=== PATIENT | female | born 1995 | race American Indian/Alaskan Native ===

== ENCOUNTER 2017-09-12 18:44 | Emergency (ER) | payer MEDICAID ==
--- NOTE | 2017-09-12 19:20 | EDM.PDOC ---
ED HPI GENERAL MEDICAL PROBLEM - General Chief Complaint: INVENTORY COORDINATOR Problem Stated Complaint: BLEEDING PG 6 WKS Time Seen by Provider: 09/12/17 19:00 Source of Information: Reports: Patient History Limitations: Reports: No Limitations - History of Present Illness INITIAL COMMENTS - FREE TEXT/NARRATIVE: 21-year-old female presents for evaluation treatment of vaginal bleeding and lower abdominal and pelvic cramping. Patient reports last menstrual period was July [address] her about 9 weeks and 3 days . She has not yet seen OB for this . Reports around 1400 today she started experiencing some bright red vaginal bleeding and passing some clots. She is also experiencing pain and cramping to the lower abdomen. No fevers, chills, nausea, vomiting, back pain or any dysuria. Patient does not know her blood type. Patient is a . This was not a planned . She is currently taking a vitamin. Denies any illicit drug use, alcohol use or any tobacco use. Lower Pelvic Pain Score (Numeric/FACES): 2 - Related Data Allergies Allergy/AdvReac Type Severity Reaction Status Date / Time No Known Allergies Allergy Verified 09/12/17 18:54 Home Meds: Home Meds Calcium Carbonate/Vitamin D2 [Oyster Shell Calcium-Vit D Tab] 1 tab PO BID 09/12 [History] Pnv with Ca,No.72/Iron/Fa [ Plus Tablet] 1 tab PO DAILY 09/12/17 [ History] Past Medical History - Past Health History Medical/Surgical History: Denies Medical/Surgical History Social & Family History - Tobacco Use Smoking Status *Q: Never Smoker - Caffeine Use Caffeine Use: Reports: Soda - Recreational Drug Use Recreational Drug Use: No ED ROS GENERAL - Review of Systems Review Of Systems: See Below Constitutional: Denies: Fever, Chills GI/Abdominal: Reports: Abdominal Pain (lower abdomen and pelvis cramping). Denies: Nausea, Vomiting : Reports: Pain (pelvic cramping). Denies: Dysuria Musculoskeletal: Denies: Back Pain ED EXAM - Physical Exam Exam: See Below Exam Limited By: No Limitations General Appearance: Alert, WD/WN, No Apparent Distress Respiratory/Chest: No Respiratory Distress, Lungs Clear, Normal Breath Sounds Cardiovascular: Normal Peripheral Pulses, Regular Rate, Rhythm GI/Abdominal Exam: Normal Bowel Sounds, Soft, Non-Tender (Female) Exam: Vaginal Bleeding. No: Cervical Dilatation, Tissue Present in Cervix/Vagina Heart Tones: Present (on transvag u/s) Neurological: Alert, Oriented, Normal Cognition Psychiatric: Normal Affect, Normal Mood Skin Exam: Warm, Dry, Normal Color Course - Vital Signs Last Recorded V/S: Last Vital Signs Temp 36.2 C 09/12/17 18:59 Pulse 75 09/12/17 18:59 Resp 20 09/12/17 18:59 BP 133/78 09/12/17 18:59 Pulse Ox 100 09/12/17 18:59 - Orders/Labs/Meds Orders: Active Orders 24 hr Category Date Time Status Pelvic Exam, Set Up [RC] ASDIRECTED Care 09/12/17 19:16 Active UA W/MICROSCOPIC [URIN] Stat Lab 09/12/17 19:25 Ordered Labs: Laboratory Tests 09/12/17 09/12/17 09/12/17 Range/Units 19:25 19:28 19:28 WBC 10.98 H (3.98-10.04) K/mm3 RBC 4.74 (3.98-5.22) M/mm3 Hgb 12.0 (11.2-15.7) gm/L Hct 37.3 (34.1-44.9) % MCV 78.7 L (79.4-94.8) fl MCH 25.3 L (25.6-32.2) pg MCHC 32.2 (32.2-35.5) g/dl RDW Std Deviation 39.3 (36.4-46.3) fL Plt Count 245 (182-369) K/mm3 MPV 10.4 (9.4-12.3) fl Neut % (Auto) 59.0 (34.0-71.1) % Lymph % (Auto) 32.6 (19.3-51.7) % [place] % (Auto) 6.2 (4.7-12.5) % Eos % (Auto) 1.7 (0.7-5.8) Baso % (Auto) 0.3 (0.1-1.2) % Neut # (Auto) 6.48 H (1.56-6.13) K/mm3 Lymph # (Auto) 3.58 (1.18-3.74) K/mm3 [place] # (Auto) 0.68 H (0.24-0.36) K/mm3 Eos # (Auto) 0.19 (0.04-0.36) K/mm3 Baso # (Auto) 0.03 (0.01-0.08) K/mm3 HCG, Quant 7342.0 mIU/mL Urine Color Light yellow (Yellow) Urine Appearance Slt cloudy H (Clear) Urine pH 6.5 (5.0-8.0) Ur Specific [place] > or = 1.030 (1.005-1.030) Urine Protein Negative (Negative) Urine Glucose (UA) Negative (Negative) Urine Ketones Negative (Negative) Urine Occult Blood 3+ H (Negative) Urine Nitrite Negative (Negative) Urine Bilirubin Negative (Negative) Urine Urobilinogen 0.2 (0.2-1.0) Ur Leukocyte Esterase Negative (Negative) Urine RBC 50-75 H (0-5) /hpf Urine WBC 0-5 (0-5) /hpf Ur Epithelial Cells 0-5 (0-5) /hpf Urine Bacteria Occasional (FEW) /hpf Urine Mucus Not seen (FEW) /hpf Blood Type 09/12/17 Range/Units 19:28 WBC (3.98-10.04) K/mm3 RBC (3.98-5.22) M/mm3 Hgb (11.2-15.7) gm/L Hct (34.1-44.9) % MCV (79.4-94.8) fl MCH (25.6-32.2) pg MCHC (32.2-35.5) g/dl RDW Std Deviation (36.4-46.3) fL Plt Count (182-369) K/mm3 MPV (9.4-12.3) fl Neut % (Auto) (34.0-71.1) % Lymph % (Auto) (19.3-51.7) % [place] % (Auto) (4.7-12.5) % Eos % (Auto) (0.7-5.8) Baso % (Auto) (0.1-1.2) % Neut # (Auto) (1.56-6.13) K/mm3 Lymph # (Auto) (1.18-3.74) K/mm3 [place] # (Auto) (0.24-0.36) K/mm3 Eos # (Auto) (0.04-0.36) K/mm3 Baso # (Auto) (0.01-0.08) K/mm3 HCG, Quant mIU/mL Urine Color (Yellow) Urine Appearance (Clear) Urine pH (5.0-8.0) Ur Specific [place] (1.005-1.030) Urine Protein (Negative) Urine Glucose (UA) (Negative) Urine Ketones (Negative) Urine Occult Blood (Negative) Urine Nitrite (Negative) Urine Bilirubin (Negative) Urine Urobilinogen (0.2-1.0) Ur Leukocyte Esterase (Negative) Urine RBC (0-5) /hpf Urine WBC (0-5) /hpf Ur Epithelial Cells (0-5) /hpf Urine Bacteria (FEW) /hpf Urine Mucus (FEW) /hpf Blood Type O POSITIVE - Radiology Interpretation Free Text/Narrative:: First trimester obstetrical ultrasound: Multiple real-time images were obtained transvaginally. Comparison: No previous study for current . And dates: LMP: LMP given as 07/08/17, ISH 04/14/18, gestational age 9 weeks 3 days Current ultrasound: ISH 05/08/18, gestational age 6 weeks 0 days Single intrauterine gestation is seen. Yolk sac and small embryo are identified. No subchorionic hemorrhage is seen. Maternal ovaries are seen which appear within normal limits. Measurements: [place]-rump length: 4.38 cm - 6 weeks 1 day Mean sac diameter: 1.05 cm - 5 weeks 5 days Heart rate: 99 BPM Impression: 1. Single intrauterine gestation. Dates as noted above. 2. Heart rate is low which may relate to early age of , however recommend follow-up study in 11 days if patient does not miscarry. 3. No complicating process is otherwise seen by ultrasound exam. - Re-Assessments/Exams Free Text/Narrative Re-Assessment/Exam: 09/12/17 21:09 Patient was offered pain medication upon arrival to the ER but declined. Patient apparently 9 weeks and 3 days based on last menstrual period but measuring about 6 weeks on ultrasound. Discussed possibility of having dates wrong but she is adamant she did not have a menstrual cycle in August. This could be implantation bleeding she is experiencing tonight. I reviewed the labs and imaging with the patient. Plan will be to have her obtain an hCG in about 48-72 hours and follow up within OB in 1 week. Outpatient order was placed after have an hCG drawn either on Saturday or Saturday. Blood type is O+, no need for rhogram today. Discharge instructions as documented. Departure - Departure Time of Disposition: 21:09 Disposition: Home, Self-Care 01 Condition: Fair Clinical Impression: Threatened , Vaginal bleeding during - Discharge Information Instructions: Vaginal Bleeding During , First Trimester Referrals: Lorena Ortega MD [Physician] - Forms: ED Department Discharge Additional Instructions: Continue with your vitamin. Continue to avoid, drugs, alcohol and tobacco products during . drink plenty of water.drink half your body weight in ounces every day. Nothing vaginal until cleared by OB. No intercourse or tampon use etc. Rest. May take [id number] Tylenol for pain. No aspirin, Aleve, ibuprofen, etc. during . Have your hCG drawn 2-3 days. your hCG tonight was 7342, this should double every 48-72 hours in a healthy . Follow-up with OB next week for a recheck. Recommend follow-up ultrasound in about 11 days. If your would prefer a female, Dr. Ruiz and Dr. Ortega at [facility] are the INVENTORY COORDINATOR providers there. Call [phone] to schedule appointment there. Please return to the ER for symptoms change or worsen. - My Orders Last 24 Hours: My Active Orders 09/12/17 19:16 Pelvic Exam, Set Up [RC] ASDIRECTED 09/12/17 19:25 UA W/MICROSCOPIC [URIN] Stat - Assessment/Plan Last 24 Hours: My Active Orders 09/12/17 19:16 Pelvic Exam, Set Up [RC] ASDIRECTED 09/12/17 19:25 UA W/MICROSCOPIC [URIN] Stat
--- NOTE | 2017-09-12 20:53 | US ---
First trimester obstetrical ultrasound: Multiple real-time images were obtained transvaginally. Comparison: No previous study for current . And dates: LMP: LMP given as 07/08/17, ISH 04/14/18, gestational age 9 weeks 3 days Current ultrasound: ISH 05/08/18, gestational age 6 weeks 0 days Single intrauterine gestation is seen. Yolk sac and small embryo are identified. No subchorionic hemorrhage is seen. Maternal ovaries are seen which appear within normal limits. Measurements: [place]-rump length: 4.38 cm - 6 weeks 1 day Mean sac diameter: 1.05 cm - 5 weeks 5 days Heart rate: 99 BPM Impression: 1. Single intrauterine gestation. Dates as noted above. 2. Heart rate is low which may relate to early age of , however recommend follow-up study in 11 days if patient does not miscarry. 3. No complicating process is otherwise seen by ultrasound exam. Diagnostic code #3
== END 2017-09-12 21:27 | disposition home or self-care (01) ==
LOC: JD.ED 18:44
DX: O20.0 Threatened abortion (principal); Z3A.09 9 weeks gestation of pregnancy
CPT/HCPCS: 36415; 76817; 76817-26; 81001; 84702; 85025; 86900; 86901; 99283; 99284-25

== ENCOUNTER 2020-11-13 17:28 | Emergency (ER) | payer MEDICAID ==
[2020-11-13] MEDS ORDERED: Sodium Chloride 0.9% 1,000 ML IV ONE (17:33)
[2020-11-13] MEDS ORDERED: Sodium Chloride 0.9% 10 ML Syringe FLUSH PRN (17:33)
[2020-11-13] MEDS ORDERED: LORazepam 2 MG/ML SDV IVPUSH ONE ×2 (17:33→18:44)
--- NOTE | 2020-11-13 18:05 | EDM.PDOC ---
ED HPI GENERAL MEDICAL PROBLEM - General Chief Complaint: Drug or Alcohol Abuse Stated Complaint: [facility] Time Seen by Provider: 11/13/20 17:32 Source of Information: Reports: Patient, RN Notes Reviewed History Limitations: Reports: No Limitations - History of Present Illness INITIAL COMMENTS - FREE TEXT/NARRATIVE: Patient is a 24-year-old female who presents to the ER by [facility] for the evaluation of her methamphetamine and fentanyl use. Patient states that she does use meth quite frequently, prior to 1-1/2 weeks ago, she was only smoking and snorting meth. About a week and a half ago however she states she started injecting meth into her veins. She notes that her father recently and this has been a major stressor for her. She is also taking fentanyl with the methamphetamines. States that her last use was exactly 2 hours prior to coming to the ER. She notes that she did use meth and fentanyl 3 times today. She states that she usually does not use them together, she thinks that this is what is causing her so much agitation. She is not having any fevers or chills, cough/shortness of breath, nausea/vomiting/diarrhea, she is not having any chest pain, she is experiencing some abdominal pain but states she has not really been eating much or taking care of herself for the last few days. Notes that she has had a weight loss due to increased meth use. - Related Data Allergies Allergy/AdvReac Type Severity Reaction Status Date / Time No Known Allergies Allergy Verified 11/13/20 17:32 Home Meds: Home Meds . [No Known Home Meds] 11/13/20 [History] Past Medical History - Past Health History Medical/Surgical History: Denies Medical/Surgical History Social & Family History - Tobacco Use Tobacco Use Status *Q: Never Tobacco User - Caffeine Use Caffeine Use: Reports: Soda - Recreational Drug Use Recreational Drug Use: Yes Drug Use in Last 12 Months: Yes Recreational Drug Type: Reports: Fentanyl, Methamphetamine ED ROS GENERAL - Review of Systems Review Of Systems: Comprehensive ROS is negative, except as noted in HPI. ED EXAM, GENERAL - Physical Exam Exam: See Below Exam Limited By: No Limitations General Appearance: Alert, WD/WN, No Apparent Distress, Anxious (generalized; pt is visibly high on methamphetamine and is tweaking.) Respiratory/Chest: No Respiratory Distress, Lungs Clear, Normal Breath Sounds, No Accessory Muscle Use, Chest Non-Tender Cardiovascular: Normal Peripheral Pulses, Regular Rate, Rhythm, No Edema, No Murmur Peripheral Pulses: 1+: Radial (L), Radial (R) GI/Abdominal: Normal Bowel Sounds, Soft, Non-Tender, No Distention, No Mass Extremities: Normal Inspection, Normal Capillary Refill Neurological: Alert, Oriented, Normal Cognition, No Motor/Sensory Deficits Psychiatric: Anxious (pt is very fidgety and anxious but does answer questions appropriately) Skin Exam: Warm, Dry, Intact, Normal Color, No Rash Course - Vital Signs Last Recorded V/S: Last Vital Signs Temp 97.4 F 11/13/20 17:32 Pulse 107 H 11/13/20 17:32 Resp 20 11/13/20 17:32 BP 136/69 11/13/20 17:32 Pulse Ox 100 11/13/20 17:32 - Orders/Labs/Meds Orders: Active Orders 24 hr Category Date Time Status Peripheral IV Care [RC] . DIRECTED Care 11/13/20 17:33 Ordered Sodium Chloride 0.9% [Saline Flush] Med 11/13/20 17:33 Ordered 10 ml FLUSH ASDIRECTED PRN Peripheral IV Insertion Adult [OM.PC] Routine Oth 11/13/20 17:33 Ordered Medication Orders Sodium Chloride (Sodium Chloride 0.9% 10 Ml Syringe) 10 ml FLUSH ASDIRECTED PRN PRN Reason: Keep Vein Open Last Admin: 11/13/20 17:41 Dose: 10 ml Documented by: EMMA Labs: Laboratory Tests 11/13/20 11/13/20 Range/Units 17:30 17:30 WBC 9.21 (3.98-10.04) K/mm3 RBC 5.44 H (3.98-5.22) M/mm3 Hgb 10.6 L (11.2-15.7) gm/dl Hct 35.0 (34.1-44.9) % MCV 64.3 L D (79.4-94.8) fl MCH 19.5 L (25.6-32.2) pg MCHC 30.3 L (32.2-35.5) g/dl RDW Std Deviation 39.8 (36.4-46.3) fL Plt Count 321 D (182-369) K/mm3 MPV 10.4 (9.4-12.3) fl Neut % (Auto) 62.1 (34.0-71.1) % Lymph % (Auto) 29.9 (19.3-51.7) % [place] % (Auto) 7.3 (4.7-12.5) % Eos % (Auto) 0.3 L (0.7-5.8) Baso % (Auto) 0.2 (0.1-1.2) % Neut # (Auto) 5.72 (1.56-6.13) K/mm3 Lymph # (Auto) 2.75 (1.18-3.74) K/mm3 [place] # (Auto) 0.67 H (0.24-0.36) K/mm3 Eos # (Auto) 0.03 L (0.04-0.36) K/mm3 Baso # (Auto) 0.02 (0.01-0.08) K/mm3 Manual Slide Review Abnormal smear Sodium 139 (136-145) mEq/L Potassium 3.3 L (3.5-5.1) mEq/L Chloride 101 (98-107) mEq/L Carbon Dioxide 20 L (21-32) mEq/L Anion Gap 21.3 H (5-15) BUN 8 (7-18) mg/dL Creatinine 1.2 H (0.55-1.02) mg/dL Est Cr Clr Drug Dosing 82.19 mL/min Estimated GFR (MDRD) 56 (>60) mL/min BUN/Creatinine Ratio 6.7 L (14-18) Glucose 97 (70-99) mg/dL Calcium 9.6 (8.5-10.1) mg/dL Total Bilirubin 0.6 (0.2-1.0) mg/dL AST 37 (15-37) U/L ALT 61 H (14-59) U/L Alkaline Phosphatase 129 H (46-116) U/L Total Protein 9.0 H (6.4-8.2) g/dl Albumin 4.3 (3.4-5.0) g/dl Globulin 4.7 gm/dL Albumin/Globulin Ratio 0.9 L (1-2) Meds: Medications Generic Name Dose Route Start Last Admin Trade Name Freq PRN Reason Stop Dose Admin Sodium Chloride 10 ml 11/13/20 17:33 11/13/20 17:41 Sodium Chloride 0.9% 10 Ml Syringe FLUSH 10 ml ASDIRECTED PRN Administration Keep Vein Open Discontinued Medications Generic Name Dose Route Start Last Admin Trade Name Danis PRN Reason Stop Dose Admin Sodium Chloride 1,000 mls @ 999 mls/hr 11/13/20 17:33 11/13/20 17:41 Normal Saline IV 11/13/20 18:33 999 mls/hr ONETIME ONE Administration Lorazepam 2 mg 11/13/20 17:33 11/13/20 17:41 Lorazepam 2 Mg/Ml Sdv IVPUSH 11/13/20 17:34 2 mg ONETIME ONE Administration Lorazepam 2 mg 11/13/20 18:44 11/13/20 18:48 Lorazepam 2 Mg/Ml Sdv IVPUSH 11/13/20 18:45 2 mg ONETIME ONE Administration - Re-Assessments/Exams Free Text/Narrative Re-Assessment/Exam: 11/13/20 18:04 Patient presents to the ER for her methamphetamine use, we will get basic labs, give her some fluids and have ordered 2 mg IV Ativan initially. Will reassess once meds have been given some time to work to see how she is feeling. 11/13/20 19:14 Patient was feeling increasingly anxious, so I did order another 2 mg IV Ativan for ongoing management. CBC is essentially unremarkable, patient's potassium mildly low at 3.3, this is likely due to her not really eating much of anything for the last few days. She was hungry, we did order her some food for today's purposes. 11/13/20 21:00 I was in to talk with the family, and they verbalized understanding and acknowledgment the patient told them that she was high on meth and fentanyl. Patient is sleeping at this time, we will go ahead and discharge her home so she can continue to sleep, family member states that they will stay with her tonight to monitor her, I did give them the number for [facility], and they were very grateful. Departure - Departure Time of Disposition: 21:00 Disposition: Home, Self-Care 01 Condition: Good Clinical Impression: Polysubstance abuse - Discharge Information *PRESCRIPTION DRUG MONITORING PROGRAM REVIEWED*: No *COPY OF PRESCRIPTION DRUG MONITORING REPORT IN PATIENT TIM: No Instructions: Finding Treatment for Addiction Forms: ED Department Discharge Additional Instructions: You were evaluated in the ER today for your methamphetamine and fentanyl use. You were given IV medications and fluids for further management, this seemed to help relieve most your symptoms. You will need to increase your oral fluid intake at home, and try to not use these drugs again for a little while, to let your system come down from them. Highly recommend that you try to stop using meth, as this is a very bad substance for your body and is very addictive. If you should need help stopping your meth use, please call [facility] at [phone] during business hours, the emergency crisis number is [phone], they would be able to help you with addiction counseling and other services. Please return to the ER at any time if symptoms change or worsen. Sepsis Event Note (ED) - Evaluation Sepsis Screening Result: No Definite Risk - Focused Exam Vital Signs: Vital Signs Temp Pulse Resp BP Pulse Ox 11/13/20 17:32 97.4 F 107 H 20 136/69 100 - My Orders Last 24 Hours: My Active Orders 11/13/20 17:33 Peripheral IV Care [RC] . DIRECTED Sodium Chloride 0.9% [Saline Flush] 10 ml FLUSH ASDIRECTED PRN Peripheral IV Insertion Adult [OM.PC] Routine - Assessment/Plan Last 24 Hours: My Active Orders 11/13/20 17:33 Peripheral IV Care [RC] . DIRECTED Sodium Chloride 0.9% [Saline Flush] 10 ml FLUSH ASDIRECTED PRN Peripheral IV Insertion Adult [OM.PC] Routine
== END 2020-11-13 21:09 | disposition home or self-care (01) ==
LOC: JD.ED 17:28
DX: F19.10 Other psychoactive substance abuse, uncomplicated (principal)
CPT/HCPCS: 36415; 80053; 85025; 96374; 96376; 99284; J2060; J7030; 99283

== ENCOUNTER 2022-01-04 02:39 | Emergency (ER) | payer MEDICAID | END 2022-01-04 03:26 | disposition home or self-care (01) | LOC: JD.ED 02:39 | DX: F15.10 Other stimulant abuse, uncomplicated (principal); E66.9 Obesity, unspecified; Z68.34 Body mass index [BMI] 34.0-34.9, adult; Z72.0 Tobacco use | CPT/HCPCS: 99284 ==

== ENCOUNTER 2022-06-01 11:30 | Emergency (ER) | payer SELFPAY ==
[2022-06-01] MEDS ORDERED: Sodium Chloride 0.9% 10 ML Syringe FLUSH PRN (12:29)
[2022-06-01] MEDS ORDERED: LORazepam 2 MG/ML SDV IVPUSH ONE ×2 (12:29→13:07)
[2022-06-01 13:20] LABS: ESTIMATED GFR 92 mL/min (>60)
== END 2022-06-01 13:45 | disposition home or self-care (01) ==
LOC: JD.ED 11:30
DX: F15.10 Other stimulant abuse, uncomplicated (principal); E66.9 Obesity, unspecified; Z68.30 Body mass index [BMI] 30.0-30.9, adult
CPT/HCPCS: 36415; 80053; 85025; 93005; 96374; 96376; 99285; J2060; J3490

== ENCOUNTER 2023-05-06 20:41 | Emergency (ER) | payer OTHER ==
[2023-05-06 21:42] LABS: BASOPHILS PERCENT AUTO 0.4 % (0.0-1.0); EOSINOPHILS PERCENT AUTO 0.2 % (0.0-6.0); HEMATOCRIT 37.1 % (37.0-47.0); HEMOGLOBIN 11.9 gm/dl (12.0-16.0); IMMATURE GRAN ABSOLUTE AUTO 0.04 K/mm3 (0.00-0.05); IMMATURE GRAN PERCENT AUTO 0.4 % (0.0-0.4); LYMPHOCYTES ABSOLUTE AUTO 2.7 K/mm3 (1.0-4.8); LYMPHOCYTES PERCENT AUTO 25.2 % (24.0-44.0); MEAN CORPUSCULAR HEMOGLOBIN 23.8 pg (28.0-32.0); MEAN CORPUSCULAR HGB CONC 32.1 g/dl (32.0-36.0); MEAN CORPUSCULAR VOLUME 74.3 fl (83.0-99.0); MEAN PLATELET VOLUME 9.9 fl (9.4-12.3); MONOCYTES ABSOLUTE AUTO 0.9 K/mm3 (0.0-0.8); MONOCYTES PERCENT AUTO 8.8 % (0.0-8.0); NEUTROPHILS ABSOLUTE AUTO 6.8 K/mm3 (1.8-7.7); PLATELET COUNT,PLT 282 K/mm3 (150-400); RED BLOOD CELL COUNT 4.99 M/mm3 (4.10-5.30)
[2023-05-06 22:03] LABS: A/G RATIO 0.8 (1-2); ALBUMIN 3.9 g/dl (3.4-5.0); ANION GAP 18.4 (5-15); BILIRUBIN TOTAL 0.7 mg/dL (0.2-1.0); CALCIUM 9.8 mg/dL (8.5-10.1); POTASSIUM,K 3.4 mEq/L (3.5-5.1); PROTEIN TOTAL,TP 8.7 g/dl (6.4-8.2)
[2023-05-06 23:36] LABS: APPEARANCE,URINE SLT CLOUDY (Clear); BILIRUBIN,URINE NEGATIVE (Negative); COLOR,URINE YELLOW (Yellow); GLUCOSE,URINE NEGATIVE (Negative); KETONES,URINE 2+ (Negative); LEUKOCYTE ESTERASE,URINE NEGATIVE (Negative); NITRITE,URINE NEGATIVE (Negative); OCCULT BLOOD,URINE NEGATIVE (Negative); PROTEIN,URINE 1+ (Negative)
[2023-05-06 23:49] LABS: BARBITURATE SCREEN,URINE NEGATIVE (CUTOFF=200); BENZODIAZEPINES SCREEN,URINE NEGATIVE (CUTOFF=150); BUPRENORPHINE SCREEN,URINE NEGATIVE (CUTOFF=10); METHADONE SCREEN, URINE NEGATIVE (CUTOFF=200); METHAMPHETAMINES SCREEN, URINE PRESUMPTIVE POSITIVE (CUTOFF=500); OXYCODONE SCREEN,URINE NEGATIVE (CUT0FF=100); THC SCREEN,URINE 20 NG/ML NEGATIVE (CUTOFF=50)
[2023-05-07 00:04] LABS: AMPHETAMINES SCREEN, URINE PRESUMPTIVE POSITIVE (CUTOFF=500)
[2023-05-07 00:05] LABS: BACTERIA,URINE FEW /hpf (FEW); EPITHELIAL CELLS,URINE 0-5 /hpf (0-5); HYALINE CASTS,URINE 0-5 /lpf (0-5); MUCUS,URINE MODERATE /hpf (FEW); RBC,URINE 0-5 /hpf (0-5)
== END 2023-05-07 03:40 | disposition home or self-care (01) ==
LOC: JD.ED 20:41
DX: R10.84 Generalized abdominal pain (principal); F17.210 Nicotine dependence, cigarettes, uncomplicated; E66.9 Obesity, unspecified; Z68.35 Body mass index [BMI] 35.0-35.9, adult
CPT/HCPCS: 36415; 80053; 80306; 81001; 84703; 85025; 99282; 99284